=== PATIENT | female | born 1995 | race Hispanic/Latino ===

== ENCOUNTER 2017-12-16 00:39 | Emergency (ER) | payer OTHER ==
[~2017-12-16] VITALS: Ht 167.6 cm; Wt 64.4 kg
[~2017-12-16 00:39] MED LIST: IMITREX25 MG
[2017-12-16 01:54] LABS: BILIRUBIN,URINE NEGATIVE (NEGATIVE); CLARITY,URINE CLEAR (CLEAR); COLOR,URINE YELLOW (YELLOW); KETONES,URINE NEGATIVE (NEGATIVE); LEUKOCYTE ESTERASE ,URINE NEGATIVE (NEGATIVE); NITRITE,URINE NEGATIVE (NEGATIVE); PROTEIN,URINE DIPSTICK NEGATIVE (NEGATIVE); URINE UROBILINOGEN 0.2 mg/dL (0.2 - 1)
[2017-12-16 01:56] LABS: INR 0.96; PROTHROMBIN TIME 13.3 seconds (11.9-14.5)
[2017-12-16 01:57] LABS: PARTIAL THROMBOPLASTIN TIME 26.5 seconds (23.8-35.5)
[2017-12-16] MEDS: PANTOPRAZOLE 40 MG 10ML VIAL IV STA (01:58)
[2017-12-16] MEDS: SODIUM CHLORIDE 0.9% 1000ML 1,000 ML IV STA (01:58)
[2017-12-16] MEDS: ONDANSETRON HCL INJ 2 MG/ML VIAL IV STA (01:58)
[2017-12-16 01:59] LABS: BASOPHILS % 0.5 % (0.0-1.0); EOSINOPHILS # (AUTO) 0.1 (0.0-0.4); EOSINOPHILS % 1.4 % (0.0-6.0); HEMATOCRIT 41.5 % (34.2-44.1); HEMOGLOBIN 13.7 g/dL (12.0-16.0); LYMPHOCYTES # (AUTO) 3.5 (1.0-3.2); LYMPHOCYTES % 45.8 % (18.0-39.1); MEAN CORPUSCULAR HEMOGLOBIN 31.6 pg (28-32); MEAN CORPUSCULAR VOLUME 95.8 fL (81-99); MONOCYTES % 12.4 % (4.4-11.3); NEUTROPHILS % 39.5 % (38.7-80.0); PLATELET COUNT 284 x10e3/uL (140-360); RED BLOOD COUNT 4.33 x10e6/uL (3.6-5.1); RED CELL DISTRIBUTION WIDTH 12.1 % (11.7-14.4)
[2017-12-16 02:02] LABS: ALANINE AMINOTRANSFERASE 20 IU/L (0-55); ALBUMIN 4.2 g/dL (3.5-5.0); ALBUMIN/GLOBULIN RATIO 1.3 (0.8-2.0); ALKALINE PHOSPHATASE 79 IU/L (40-150); ANION GAP 10.9 mmol/L (8-16); BLOOD UREA NITROGEN 7 mg/dL (7-26); BUN/CREATININE RATIO 10 (6-25); CALCIUM 9.1 mg/dL (8.4-10.2); CARBON DIOXIDE 26 mmol/L (22-29); CHLORIDE 106 mmol/L (98-107); EST GLOMERULAR FILTRATION RATE > 60 ML/MIN (60-); GLUCOSE 96 mg/dL (74-118); MAGNESIUM 2.2 MG/DL (1.3-2.1); POTASSIUM 3.9 mmol/L (3.5-5.1); SODIUM 139 mmol/L (136-145)
[2017-12-16 02:06] LABS: BACTERIA,URINE FEW /HPF; EPITHELIAL CELLS,URINE FEW /LPF; WBC,URINE (MAN) 0-5 /HPF (0-5)
[2017-12-16] MEDS: DICYCLOMINE HCL 20 MG/2 ML VIAL IM ONE (02:10)
[2017-12-16 03:58] VITALS: BP 111/69
== END 2017-12-16 04:33 | disposition home or self-care (01) ==
LOC: ER 00:39
DX: K92.1 Melena (principal); R10.32 Left lower quadrant pain; R10.31 Right lower quadrant pain; R19.7 Diarrhea, unspecified
CPT/HCPCS: 36415; 80053; 81001; 81025; 83735; 85025; 85610; 85730; 87086; 96360; 96372; 96374; 99283; J0500; J2405; J7030